=== PATIENT | male | born 1945 | race Caucasian/White ===

== ENCOUNTER 2021-10-15 07:23 | Outpatient (CLI) | payer MEDICARE, SELFPAY ==
[2021-10-15 14:44] LABS: Chloride* 105 mmol/L (96-114)
[2021-10-15 14:45] LABS: Potassium* 4.3 mmol/L (3.6-5.1); Sodium* 138 mmol/L (135-149)
[2021-10-15 14:47] LABS: Blood Urea Nitrogen* 21 mg/dL (7-30); Carbon Dioxide* 21 mmol/L (20-32); Cholesterol* 220 mg/dL (90-199); Creatinine* 1.1 mg/dL (0.5-1.5); Estimated Glomerular Filt Rate 70 ml/min
[2021-10-15 14:48] LABS: Calcium* 9.4 mg/dL (8.4-10.6); Glucose* 102 mg/dL (60-115); HDL Cholesterol* 45 mg/dL (>=40); LDL Cholesterol Calculated 158 mg/dL (<100); Triglycerides* 86 mg/dL (40-149)
[2021-10-15 15:21] LABS: PSA Screen* 1.51 ng/mL (0.10-4.00)
[2021-10-21 14:48] LABS: Vitamin B12* 420 pg/mL (243-894)
== END 2021-10-15 07:24 | disposition home or self-care (01) ==
PROVIDERS: PCP Physician Assistant Medical; Visit Provider Physician Assistant Medical
DX: I10 Essential (primary) hypertension (principal); E78.5 Hyperlipidemia, unspecified; E53.8 Deficiency of other specified B group vitamins; Z12.5 Encounter for screening for malignant neoplasm of prostate
CPT/HCPCS: 80048; 80061; 82607; 84153

== ENCOUNTER 2021-11-24 15:59 | Outpatient (CLI) | payer MEDICARE, SELFPAY ==
[2021-11-24 14:04] LABS: Cholesterol* 178 mg/dL (90-199)
[2021-11-24 14:05] LABS: HDL Cholesterol* 43 mg/dL (>=40); LDL Cholesterol Calculated 117 mg/dL (<100); Triglycerides* 92 mg/dL (40-149)
[2021-11-24 14:39] LABS: Chloride* 104 mmol/L (96-114); Potassium* 4.5 mmol/L (3.6-5.1); Sodium* 139 mmol/L (135-149)
[2021-11-24 14:41] LABS: Alanine Aminotransferase* 34 U/L (4-50); Aspartate Amino Transferase* 28 U/L (12-35); Creatinine* 1.2 mg/dL (0.5-1.5); Estimated Glomerular Filt Rate 63 ml/min
[2021-11-24 14:42] LABS: Blood Urea Nitrogen* 28 mg/dL (7-30); Calcium* 9.6 mg/dL (8.4-10.6); Carbon Dioxide* 26 mmol/L (20-32); Glucose* 107 mg/dL (60-115)
== END 2021-11-24 16:00 | disposition home or self-care (01) ==
PROVIDERS: PCP Physician Assistant Medical; Visit Provider Physician Assistant Medical
DX: E78.2 Mixed hyperlipidemia (principal); I10 Essential (primary) hypertension
CPT/HCPCS: 80048; 80061; 84450; 84460

== ENCOUNTER 2022-06-04 07:51 | Outpatient (CLI) | payer MEDICARE, SELFPAY | END 2022-06-04 07:52 | disposition home or self-care (01) | LOC: NFLDREF 06-05 10:56 | PROVIDERS: PCP Physician Assistant Medical; Referring Provider Physician Assistant Medical; Visit Provider Physician Assistant Medical | DX: E78.2 Mixed hyperlipidemia (principal); I10 Essential (primary) hypertension; E53.8 Deficiency of other specified B group vitamins; M79.672 Pain in left foot | CPT/HCPCS: 80061; 84450; 84460 ==

== ENCOUNTER 2022-10-09 08:35 | Outpatient (CLI) | payer MEDICARE, SELFPAY | END 2022-10-09 08:36 | disposition home or self-care (01) | LOC: NFLDREF 10-11 03:38 | PROVIDERS: PCP Physician Assistant Medical; Referring Provider Physician Assistant Medical; Visit Provider Physician Assistant Medical | DX: I10 Essential (primary) hypertension (principal); E78.5 Hyperlipidemia, unspecified; Z12.5 Encounter for screening for malignant neoplasm of prostate | CPT/HCPCS: 80048; 80061; 84153 ==

== ENCOUNTER 2022-12-24 12:18 | Outpatient (CLI) | payer MEDICARE, SELFPAY ==
--- NOTE | 2022-12-24 14:10 | W.ANESCHARGE ---
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
== END 2022-12-24 12:19 | disposition home or self-care (01) ==
LOC: OP CLINIC 12:18
PROVIDERS: PCP Physician Assistant Medical; Visit Provider Surgery
DX: R19.5 Other fecal abnormalities (principal); K63.5 Polyp of colon
CPT/HCPCS: 00811; 45385; 88305; 99140; J2704

== ENCOUNTER 2023-07-23 06:58 | Day surgery (SDC) | payer MEDICARE, SELFPAY ==
[2023-07-23] VITALS (9 sets, daily range): BP systolic 141–163; BP diastolic 71–84; PULSE 56–66; RESP 16–20; TEMP 36.5; O2SAT 95–99; BMI 29.0
--- NOTE | 2023-07-23 07:28 | P.ORPRC_ITS ---
Procedure Note Date of procedure: 07/23/23 Procedure: PREOPERATIVE DIAGNOSIS: 1. Left carpal tunnel syndrome POSTOPERATIVE DIAGNOSIS: 1. Left carpal tunnel syndrome PROCEDURE: 1. Left open carpal tunnel release SURGEON: Tor James MD. SPINNING LATHE OPERATOR: Gladys Borges P.A.-C. An tv production assistant was critical for this case to aid in patient positioning, tissue retraction, limb manipulation/positioning, and closure. ANESTHESIA: Local anesthetic IMPLANTS: None TOURNIQUET: 12 min at 250 mmHg COMPLICATIONS: None INDICATIONS: The patient is a pleasant 77-year-old male with history of numbness and tingling in his hands and nerve conduction studies that were consistent with carpal tunnel syndrome. Symptoms were not improving with conservative treatment, and patient elected to proceed with surgical intervention consisting of left carpal tunnel release. Prior to surgery, the r isks and benefits of the procedure were discussed with patient, all questions were answered, and informed consent was obtained. DESCRIPTION OF PROCEDURE: Patient was seen preoperatively and operative site was marked. Patient was then brought to the operating room and placed in the supine position on the OR table. A tourniquet was placed on the patient's left arm. The subcutaneous tissues overlying the left carpal tunnel were injected with a combination of 1% lidocaine and 0.25% bupivacaine. The left upper extremity was prepped and draped in usual sterile fashion. A surgical time-out was performed confirming patient name, procedure, and location. The operative extremity was then elevated and exsanguinated with an Esmarch, and the tourniquet was inflated to 250 mmHg. A skin incision measuring approximately 3-4 cm was made in line with the ring finger extending from the distal wrist flexion crease to Ge's cardinal line. Blunt dissection was used to dissect through subcutaneous tissues and palmar fascia. Transverse carpal ligament was identified and was sharply incised proximally with care taken to protect the underlying median nerve. The transverse carpal ligament was then sharply divided along its ulnar border using tenotomy scissors and a [place] blade with care taken to protect the underlying median nerve. Once the transverse carpal ligament was divided, the antebrachial fascia was released proximally. The wound was then irrigated with normal saline, and the tourniquet was released. Total tourniquet time was 12 minutes. Hemostasis was achieved with bipolar electrocautery. The skin incision was closed with 3-0 nylon horizontal mattress sutures, and a sterile dressing was applied. Patient was then transferred to the recovery room in stable condition. POSTOPERATIVE PLAN: 1. Patient will be discharged to home day of surgery. 2. They were given instructions for wound care and finger range of motion exercises. 3. Return to the clinic for follow-up evaluation in 10-14 days for wound check and suture removal.
--- NOTE | 2023-07-23 07:28 | W.PM.H&PU ---
History & Physical Update History & Physical Update H&P Reviewed and patient assessed: No changes noted
[2023-07-23] MEDS: ETHYL CHLORIDE 1 APPLICATION 1 APPLIC TOPICAL (08:40)
[2023-07-23] MEDS: BUPIVACAINE 0.25% 30 ML INJECTION (08:40)
[2023-07-23] MEDS: LIDOCAINE 1% MDV INJECTION (08:40)
[2023-07-23] MEDS: BACITRACIN OINTMENT BULK TUBE 1 APPLIC TOPICAL (09:10)
== END 2023-07-23 09:41 | disposition home or self-care (01) ==
PROVIDERS: PCP Physician Assistant Medical; Visit Provider Orthopaedic Surgery
PROC: (CPT 64721; principal; 2023-07-23 08:30)
DX: G56.02 Carpal tunnel syndrome, left upper limb (principal)
CPT/HCPCS: 64721; J0665; J2704; J3010

== ENCOUNTER 2023-10-01 06:15 | Day surgery (SDC) | payer MEDICARE, SELFPAY ==
[2023-10-01] VITALS (8 sets, daily range): BP systolic 138–157; BP diastolic 69–80; PULSE 59–84; RESP 16–18; TEMP 36.4; O2SAT 96–99; BMI 26.4
[2023-10-01] MEDS: BUPIVACAINE 0.25 %/EPI 1:200K 30 ml INJECTION (07:00)
[2023-10-01] MEDS: LIDOCAINE 1% MDV 20 ML INJECTION ×2 (07:00→07:10)
--- NOTE | 2023-10-01 07:14 | W.PM.H&PU ---
History & Physical Update History & Physical Update H&P Reviewed and patient assessed: No changes noted
--- NOTE | 2023-10-01 07:15 | P.ORPRC_ITS ---
Procedure Note Date of procedure: 10/01/23 Procedure: PREOPERATIVE DIAGNOSIS: 1. Right carpal tunnel syndrome POSTOPERATIVE DIAGNOSIS: 1. Right carpal tunnel syndrome PROCEDURE: 1. Right open carpal tunnel release SURGEON: Tor James MD. INSPECTOR FILTERS: RATNA Boateng. An assistant education director was critical for this case to aid in patient positioning, tissue retraction, limb manipulation/positioning, and closure. ANESTHESIA: Local anesthetic IMPLANTS: None ESTIMATED BLOOD LOSS: 1 mL TOURNIQUET: Not utilized COMPLICATIONS: None FINDINGS: Thickened transverse carpal ligament compressing median nerve. INDICATIONS: The patient is a pleasant 77-year-old male with history of right carpal tunnel syndrome. Symptoms were not improving with conservative treatment, and patient elected to proceed with surgical intervention consisting of right carpal tunnel release. Prior to surgery, the risks and benefits of the procedure were discussed with patient, all questions were answered, and informed consent was obtained. DESCRIPTION OF PROCEDURE: Patient was seen preoperatively and operative site was marked. After sterile prep, the subcutaneous tissues overlying the right carpal tunnel were injected with combination of 1% lidocaine and 0.25% bupivacaine with epinephrine. Daniel feliciano was then brought to the operating room and placed in the supine position on the OR table. A tourniquet was placed on the patient's right arm and right upper extremity was prepped and draped in usual sterile fashion. A surgical time-out was performed confirming patient name, procedure, and location. A skin incision measuring approximately 3-4 cm was made in line with the ring finger extending from the distal wrist flexion crease to Ge's cardinal line. Blunt dissection was used to dissect through subcutaneous tissues and palmar fascia. Bipolar electrocautery was used to achieve hemostasis. Transverse carpal ligament was identified and was sharply incised proximally with care taken to protect the underlying median nerve. The transverse carpal ligament was then sharply divided along its ulnar border using tenotomy scissors and a twenty-nine palms blade with care taken to protect the underlying median nerve. Once the transverse carpal ligament was divided, the antebrachial fascia was released proximally. The wound was then irrigated with normal saline. The skin incision was closed with 3-0 nylon horizontal mattress sutures, and a sterile dressing was applied. Patient was then transferred to the recovery room in stable condition. POSTOPERATIVE PLAN: 1. Patient will be discharged to home day of surgery. 2. Ice and elevation as needed for pain and swelling. 3. Tylenol and/or ibuprofen as needed for pain. 4. They were given instructions for wound care and finger range of motion exercises. 5. Return to the clinic for follow-up evaluation in 10-14 days for wound check and suture removal.
--- NOTE | 2023-10-01 07:34 | SUR.PHASEII ---
SAME DAY SURGERY LOCAL INJECTION SITE VERIFICATION WAS PERFORMED BY SURGEON/PA AND PATIENT PRIOR TO LOCAL ANESTHETIC BEING INJECTED TO OPERATIVE SITE.
== END 2023-10-01 08:18 | disposition home or self-care (01) ==
PROVIDERS: PCP Physician Assistant Medical; Visit Provider Orthopaedic Surgery
PROC: (CPT 64721; principal; 2023-10-01 07:30)
DX: G56.01 Carpal tunnel syndrome, right upper limb (principal)
CPT/HCPCS: 64721

== ENCOUNTER 2023-10-28 09:23 | Outpatient (CLI) | payer MEDICARE, SELFPAY | END 2023-10-28 09:24 | disposition home or self-care (01) | LOC: NFLDREF 10-29 09:29 | PROVIDERS: PCP Physician Assistant Medical; Referring Provider Physician Assistant Medical; Visit Provider Physician Assistant Medical | DX: I10 Essential (primary) hypertension (principal); E78.2 Mixed hyperlipidemia; E53.8 Deficiency of other specified B group vitamins; Z12.5 Encounter for screening for malignant neoplasm of prostate | CPT/HCPCS: 80053; 80061; 82607; G0103 ==

== ENCOUNTER 2024-10-31 09:10 | Outpatient (CLI) | payer MEDICARE, SELFPAY | END 2024-10-31 09:11 | disposition home or self-care (01) | LOC: NFLDREF 11-04 20:56 | PROVIDERS: PCP Physician Assistant Medical; Referring Provider Physician Assistant Medical; Visit Provider Physician Assistant Medical | DX: Z00.00 Encounter for general adult medical examination without abnormal findings (principal); E78.2 Mixed hyperlipidemia; I10 Essential (primary) hypertension; E53.8 Deficiency of other specified B group vitamins; Z12.5 Encounter for screening for malignant neoplasm of prostate | CPT/HCPCS: 80053; 80061; 82607; 84443; G0103 ==